=== PATIENT | male | born 1990 | race Caucasian/White ===

== ENCOUNTER 2017-07-19 18:35 | Emergency (ER) | payer SELFPAY ==
[2017-07-19 18:50] VITALS: RESP 16
--- NOTE | 2017-07-19 19:37 | EDPHY ---
H & P Stated Complaint: Sore on RLE and poss abcess R post thigh~1wk HPI/ROS: HPI CHIEF COMPLAINT: Right leg Sores HISTORY OF PRESENT ILLNESS: This patient is a very pleasant 27-year-old male, significant past medical history for IV drug use however no current use, presents emergency room with 2 discrete lesions on his right leg that he has concern for abscess. He presents with 2 lesions. He has 1 small lesion on the anterior right tibia. This does not need to be drained. And then he has a rather large lesions 6 cm x 6 cm in circumference on the right posterior thigh that is fluctuant and indurated. Central head region but not draining. These have been present for week. He denies any significant pain. Denies fever. Denies chills. Patient works in [place] and thinks that he may have sustained these infected lesions on his legs from having dirt and scratches of his legs. Past Medical History: History of IV drug use as well as abscess. Past Surgical History: Denies recent surgery Social History: Denies drugs alcohol tobacco currently. Works in [place]. Family History: Noncontributory ROS REVIEW OF SYSTEMS: A comprehensive 10 point review of systems is otherwise negative aside from elements mentioned in the history of present illness. Exam Constitutional appears well nontoxic triage nursing summary reviewed, vital signs reviewed, awake/alert. Eyes normal conjunctivae and sclera, EOMI, PERRLA. HENT normal inspection, atraumatic, moist mucus membranes, no epistaxis, neck supple/ no meningismus, no raccoon eyes. Respiratory clear to auscultation bilaterally, normal breath sounds, no respiratory distress, no wheezing. Cardiovascular rate normal, regular rhythm, no murmur, no edema, distal pulses normal. Gastrointestinal soft, non-tender, no rebound, no guarding, normal bowel sounds, no distension, no pulsatile mass. Genitourinary no CVA tenderness. Musculoskeletal no midline vertebral tenderness, full range of motion, no calf swelling, no tenderness of extremities, no meningismus, good pulses, neurovascularly intact. Skin 2 discrete abscesses 1 on the right anterior tibia region that is small 2 cm x 2 cm without any fluctuance or induration does not need to be drained, additionally posterior right thigh abscess 6 cm x 6 cm with induration and fluctuance. Central head. No drainage. Neurologic awake, alert and oriented x 3, AAOx3, moves all 4 extremities equally, motor intact, sensory intact, CN II-XII intact, normal cerebellar, normal vision, normal speech. Psychiatric normal mood/affect. Heme/Lymph/Immune no lymphadenopathy. Differential Diagnosis: Includes but is not limited to in a particular order multiple abscess, strep infection, MRSA infection, staph infection Medical Decision Making: Plan for this patient I and D of his right posterior thigh abscess. Recommend warm compresses. Keflex and Bactrim as prescribed. Return precautions given. I do not feel that he needs blood work or IV establishment as he appears well nontoxic no acute distress. Localized care at this time Source: Patient - Personal History Current Tetanus Diphtheria and Acellular Pertussis (TDAP): Unsure - Medical/Surgical History Other PMH: ulcerative colitis. former IV drug user - Social History Smoking Status: Former smoker Constitutional: Initial Vital Signs Temperature (C) 36.8 C 07/19/17 18:40 Heart Rate 75 07/19/17 18:40 Respiratory Rate 16 07/19/17 18:40 Blood Pressure 151/89 H 07/19/17 18:40 O2 Sat (%) 99 07/19/17 18:40 O2 Delivery Mode Room Air Allergies/Adverse Reactions: No Known Allergies Allergy (Unverified 07/19/17 18:46) Home Medications: Medication Instructions Recorded Cephalexin [Keflex] 500 mg PO Q6H #28 cap 07/19/17 Ibuprofen [Motrin (*)] 800 mg PO Q6-8PRN #10 tab 07/19/17 Sulfamethox/Tmp 800/160 mg 1 tab PO BID@1000,2200 #14 tab 07/19/17 [Bactrim Ds] Medical Decision Making - Data Points Medications Given: Discontinued Medications Cephalexin (Keflex 500 Mg Prepack#4) 1 btl TAKEHOME EDNOW ONE PRN Reason: Protocol Stop: 07/19/17 19:45 Last Admin: 07/19/17 19:51 Dose: 1 btl Cephalexin HCl (Keflex) 500 mg PO EDNOW ONE PRN Reason: Protocol Stop: 07/19/17 19:45 Last Admin: 07/19/17 19:51 Dose: 500 mg Trimethoprim/Sulfamethoxazole (Bactrim Ds) 1 ea PO EDNOW ONE PRN Reason: Protocol Stop: 07/19/17 19:45 Last Admin: 07/19/17 19:51 Dose: 1 ea Departure - Departure Disposition: Home, Routine, Self-Care Clinical Impression: Abscess Condition: Good Instructions: Cephalexin (By mouth), Sulfamethoxazole/Trimethoprim (By mouth), Abscess (ED) Additional Instructions: 1. Warm compresses 3 times a day for 20 min. 2. Take antibiotics as prescribed Keflex and Bactrim with food. 3. Return to the emergency room if you have worsening symptoms includes fever, worsening abscess, worsening redness or pain. Referrals: NONE *PRIMARY CARE P,. [Primary Care Provider] - As per Instructions Prescriptions: Cephalexin [Keflex] 500 mg PO Q6H #28 cap Ibuprofen [Motrin (*)] 800 mg PO Q6-8PRN #10 tab Sulfamethox/Tmp 800/160 mg [Bactrim Ds] 1 tab PO BID@1000,2200 #14 tab
[2017-07-19] MEDS ORDERED: CEPHALEXIN 500 MG CAP PO ONE (19:44)
[2017-07-19] MEDS ORDERED: SULFAMETHOX/TMP 800/160 MG 1 TAB PO ONE (19:44)
[2017-07-19] MEDS ORDERED: CEPHALEXIN 500MG PREPACK#4 BTL TAKEHOME ONE (19:44)
[2017-07-19 20:56] VITALS: BP 142/72; PULSE 70; TEMP 98.1; O2SAT 97
== END 2017-07-19 20:54 | disposition home or self-care (01) ==
DX: L02.415 Cutaneous abscess of right lower limb (principal); Z87.891 Personal history of nicotine dependence

== ENCOUNTER 2017-07-21 14:23 | Emergency (ER) | payer SELFPAY ==
[2017-07-21 14:29] VITALS: O2SAT 98
--- NOTE | 2017-07-21 15:07 | EDPHY ---
H & P Time Seen by Provider: 07/21/17 14:55 HPI/ROS: CHIEF COMPLAINT: Wound recheck HISTORY OF PRESENT ILLNESS: 27-year-old male prior history of IV drug use seen the ER 2 days ago for right posterior thigh abscess, incised and drained on return to the ER for wound recheck. Was also noted to have a right pretibial lesion which was not incised and drained. States that he is feeling overall improvement. Has been compliant with medication. No fever no chills no nausea no vomiting. No flu-like symptoms. PHYSICAL EXAM (Prior to examination, patient consented to physical exam, hands were washed and my usual and customary physical exam procedures followed) 1) GENERAL: Well-developed, well-nourished, alert and oriented. Appears to be in no acute distress. 2) HEAD: Normocephalic 3) HEENT: sclera anicteric 4) LUNGS: Breathing comfortably. 5) MUSCULOSKELETAL:] Right posterior mid thigh dressing and packing in place, removed. There has been a significant decrease in the amount of erythema and induration. On the right pretibial region there is a fluctuant tender lesion with no lymphangitic streaking. No crepitus of the lower extremity. Smoking Status: Former smoker Constitutional: Initial Vital Signs Temperature (C) 36.6 C 07/21/17 14:26 Heart Rate 78 07/21/17 14:26 Respiratory Rate 16 07/21/17 14:26 Blood Pressure 126/60 H 07/21/17 14:26 O2 Sat (%) 98 07/21/17 14:26 O2 Delivery Mode Room Air Allergies/Adverse Reactions: No Known Allergies Allergy (Verified 07/21/17 14:24) Home Medications: Medication Instructions Recorded Cephalexin [Keflex] 500 mg PO Q6H #28 cap 07/19/17 Ibuprofen [Motrin (*)] 800 mg PO Q6-8PRN #10 tab 07/19/17 Sulfamethox/Tmp 800/160 mg 1 tab PO BID@1000,2200 #14 tab 07/19/17 [Bactrim Ds] MDM/Departure - MDM Procedures: Procedure: Abscess drainage. The patient's abscess was located on the right pretibial region. I obtained verbal consent from the patient to drain the abscess who was informed about the possibility of bleeding and pain. The abscess was incised with a 11 Scalpel and a mild amount of purulent drainage was expressed. I irrigated the wound and placed some packing. The patient tolerated the procedure well. The procedure was performed by myself. - Depart Disposition: Home, Routine, Self-Care Clinical Impression: Abscess Condition: Good Instructions: Abscess (ED) Additional Instructions: Return to the ER if you develop redness, swelling, discharge, warmth to the wound, red streaks going up your arm, or any other symptoms that concern you. Referrals: [facility],. [Clinic] - 2-3 days, call for appt.
[2017-07-21 15:48] VITALS: BP 121/85; PULSE 82; RESP 18; TEMP 98.6
== END 2017-07-21 15:44 | disposition home or self-care (01) ==
PROC: 0H9KXZZ Drainage of Right Lower Leg Skin, External Approach (ICD-10-PCS; principal; 2017-07-21)
DX: L02.415 Cutaneous abscess of right lower limb (principal); Z87.891 Personal history of nicotine dependence

== ENCOUNTER 2018-01-11 21:01 | Emergency (ER) | payer OTHER ==
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
[2018-01-11] MEDS ORDERED: NS 1,000 ML IV ONE (21:13)
[2018-01-11] MEDS ORDERED: IOPAMIDOL (ISOVUE-300) 100 ML BTL ONE (21:31)
[2018-01-11 21:36] LABS: PLATELET COUNT 266 10^3/uL (150-400)
[2018-01-11 22:18] LABS: INR 1.05 (0.83-1.16); PROTIME(PATIENT) 13.9 SEC (12.0-15.0)
[2018-01-11 23:17] VITALS: BP 121/72
== END 2018-01-11 23:15 | disposition home or self-care (01) ==
LOC: EDUNIT#
DX: S30.0XXA Contusion of lower back and pelvis, initial encounter (principal); E86.9 Volume depletion, unspecified; Z87.891 Personal history of nicotine dependence; V68.7XXA Person on outside of heavy transport vehicle injured in noncollision transport accident in traffic accident, initial encounter; Y92.410 Unspecified street and highway as the place of occurrence of the external cause; Y99.8 Other external cause status; Y93.89 Activity, other specified
CPT/HCPCS: 82435-PO; 82565-PO; 82947-PO; 84132-PO; 84295-PO; 84520-PO; 85014-PO; L0120; Q9967